=== PATIENT | female | born 1960 | race Caucasian/White ===

== ENCOUNTER 2017-08-06 08:25 | Emergency (ER) | payer MEDICAID ==
[~2017-08-06] VITALS: Ht 167.6 cm; Wt 66.2 kg
[2017-08-06 08:32] VITALS: BP 96/73
== END 2017-08-06 09:40 | disposition home or self-care (01) ==
LOC: ER 08:25
DX: S60.212A Contusion of left wrist, initial encounter (principal); Z88.0 Allergy status to penicillin; X58.XXXA Exposure to other specified factors, initial encounter; Y93.89 Activity, other specified; Y92.89 Other specified places as the place of occurrence of the external cause; Y99.8 Other external cause status
CPT/HCPCS: 73110

== ENCOUNTER 2018-01-19 09:46 | Emergency (ER) | payer MEDICAID ==
[~2018-01-19] VITALS: Ht 167.6 cm; Wt 65.8 kg
[2018-01-19 09:58] VITALS: BP 128/76
== END 2018-01-19 11:49 | disposition home or self-care (01) ==
LOC: ER 09:46
DX: S16.1XXA Strain of muscle, fascia and tendon at neck level, initial encounter (principal); S09.90XA Unspecified injury of head, initial encounter; M50.222 Other cervical disc displacement at C5-C6 level; Z88.0 Allergy status to penicillin; V49.9XXA Car occupant (driver) (passenger) injured in unspecified traffic accident, initial encounter; Y93.89 Activity, other specified; Y99.8 Other external cause status; Y92.488 Other paved roadways as the place of occurrence of the external cause
CPT/HCPCS: 70450; 72125

== ENCOUNTER 2018-10-14 10:38 | Emergency (ER) | payer MEDICAID ==
[~2018-10-14] VITALS: Ht 167.6 cm; Wt 72.6 kg
[2018-10-14 12:15] VITALS: BP 119/78
== END 2018-10-14 13:49 | disposition home or self-care (01) ==
LOC: ER 10:38
DX: S20.212A Contusion of left front wall of thorax, initial encounter (principal); S80.02XA Contusion of left knee, initial encounter; S80.01XA Contusion of right knee, initial encounter; F17.210 Nicotine dependence, cigarettes, uncomplicated; Z88.0 Allergy status to penicillin; W01.0XXA Fall on same level from slipping, tripping and stumbling without subsequent striking against object, initial encounter; Y93.01 Activity, walking, marching and hiking; Y92.098 Other place in other non-institutional residence as the place of occurrence of the external cause; Y99.8 Other external cause status
CPT/HCPCS: 71046; 71101

== ENCOUNTER 2023-08-11 15:04 | Emergency (ER) | payer MEDICAID ==
[~2023-08-11] VITALS: Ht 170.2 cm; Wt 66.4 kg
[2023-08-11 17:02] VITALS: BP 108/77; PULSE 98; RESP 18; TEMP 98; O2SAT 97
[2023-08-11] MEDS: IBUPROFEN 800 MG TAB PO ONE (17:32)
[2023-08-11] MEDS ORDERED: IBUP-1456 PO (17:50)
[2023-08-11] MEDS ORDERED: METH-1182 PO (17:50)
== END 2023-08-11 17:54 | disposition home or self-care (01) ==
LOC: ER 15:04
DX: S16.1XXA Strain of muscle, fascia and tendon at neck level, initial encounter (principal); M50.30 Other cervical disc degeneration, unspecified cervical region; F17.210 Nicotine dependence, cigarettes, uncomplicated; Z88.0 Allergy status to penicillin; Z79.899 Other long term (current) drug therapy; V43.52XA Car driver injured in collision with other type car in traffic accident, initial encounter; Y93.I9 Activity, other involving external motion; Y92.89 Other specified places as the place of occurrence of the external cause; Y99.8 Other external cause status
CPT/HCPCS: 72040